=== PATIENT | male | born 1955 | race Hispanic/Latino ===

== ENCOUNTER 2019-04-03 09:22 | Outpatient (CLI) | payer MEDICARE, BC | END 2019-04-03 09:23 | disposition home or self-care (01) | LOC: RAD 09:22 | DX: N18.3 Chronic kidney disease, stage 3 (moderate) (principal); I25.10 Atherosclerotic heart disease of native coronary artery without angina pectoris ==

== ENCOUNTER 2019-04-04 08:05 | Outpatient (CLI) | payer MEDICARE, BC | END 2019-04-04 08:06 | disposition home or self-care (01) | LOC: RAD 08:05 | DX: N18.3 Chronic kidney disease, stage 3 (moderate) (principal) ==